=== PATIENT | male | born 1945 | race Caucasian/White ===

== ENCOUNTER 2016-08-01 17:09 | Inpatient (IN) | payer OTHER, SELFPAY ==
--- NOTE | ~2016-08-01 | CN ---
Consultation Report [facility] [address] [place]. [address] NAME: LV VASQUEZ : 47 STATUS : ADM IN [facility]#: [id number] AGE: 71 ADM/REG DATE : 08/01/16 MR#: [id number] REPORT SERV DATE: 08/02/16 DICTATED BY: CLINT PARIS DATE: 08/02/16 REPORT STATUS : Draft TRANSCRIBED BY: MODL DATE: 08/02/16 ELECTROPHYSIOLOGY CONSULTATION DATE OF CONSULTATION: 08/02/2016 REASON FOR CONSULTATION: 2:1 AV block, symptomatic bradycardia. HISTORY OF PRESENT ILLNESS: Mr. Vasquez is a pleasant 71-year-old gentleman, who presented to [facility] Emergency Room and noted to have 2:1 AV block, symptomatic. He was transferred here for further evaluation. He has noted weakness and fatigue. He has no prior history of bradycardia noted. PAST MEDICAL HISTORY: Includes: 1. History of paroxysmal atrial fibrillation. 2. Hypertension. 3. Morbid obesity. 4. Pure hypercholesterolemia. 5. Mild aortic stenosis. 6. Decreased LV systolic function, ejection fraction between 40% and 45% by echocardiogram most recently in 10/2015. 7. Underlying right bundle-branch block. HOME MEDICATIONS: Include losartan and hydrochlorothiazide, vitamin D. FAMILY HISTORY: Negative for premature coronary artery disease or sudden cardiac . SOCIAL HISTORY: Negative tobacco or alcohol. REVIEW OF SYSTEMS: As noted above. All other systems reviewed and negative. PHYSICAL EXAMINATION: VITAL SIGNS: Heart rate is 32 in 2:1 AV block. Most recent blood pressure was 168/70, prior blood pressure 125/56. Respirations 16. GENERAL: Well developed, well nourished. He is in no acute distress. HEENT: No icterus. Good dentition. NECK: Supple. No masses or thyromegaly. LUNGS: Breathing comfortably. No rales or wheezes. COR: A 2/6 systolic ejection murmur best heard at the right upper sternal border. ABD: Soft, nondistended, nontender. No hepatosplenomegaly. EXT: No clubbing, cyanosis, or edema. Peripheral pulses 2+/= bilaterally. SKIN: Warm and dry. No visible lesions. MS: Chest wall without deformity. No obvious clavicular fractures. NEURO/PSYCH: Oriented X3. No anxiety or depression. Consultation Report [facility] [address] [place]. [address] NAME: LV VASQUEZ : 47 STATUS : ADM IN PAT#: [id number] AGE: 71 ADM/REG DATE : 08/01/16 MR#: [id number] REPORT SERV DATE: 08/02/16 DICTATED BY: CLINT PARIS DATE: 08/02/16 REPORT STATUS : Draft TRANSCRIBED BY: MODL DATE: 08/02/16 LABORATORY DATA: EKG demonstrates 2:1 AV block with right bundle-branch block. PVCs noted as well. No evidence for ischemia or infarction. Laboratory values show a creatinine of 1.2. Electrolytes within normal limits. White count 9.4, hematocrit of 35, platelet count of 304. IMPRESSION: 2:1 AV block noted in a patient with underlying right bundle-branch block. He also has a cardiomyopathy with ejection fraction measured between 40% to 45%. I believe he would be a candidate for a dual-chamber biventricular pacing device given the fact that he will have an acquired left bundle-branch block by chronic RV pacing. I have discussed this procedure with the patient and noted how it is performed as well as the inherent risks which include, but are not exclusive to bleeding, infection, pneumothorax, cardiac perforation, and risk of . Also noted approximately 10% chance of LV lead failure due to anatomic considerations, in which case we would plan on simply placing a dual-chamber pacemaker device. The patient is agreeable to undergo the procedure. JA/OMA Clint Paris M.D. / [id number] CC: Amada Connell M.D.
--- NOTE | ~2016-08-01 | HP ---
History And Physical [address] [place]. [address] NAME: LV BONILLA : 47 STATUS : ADM IN [facility]#: [id number] AGE: 71 ADM/REG DATE : 08/01/16 MR#: [id number] REPORT SERV DATE: 08/02/16 DICTATED BY: SOLOMON THURSTON DATE: 08/02/16 REPORT STATUS : Draft TRANSCRIBED BY: MODL DATE: 08/02/16 DATE OF ADMISSION: 08/02/2016 CHIEF COMPLAINT: Weakness and bradycardia. HISTORY OF PRESENT ILLNESS: A 71-year-old man, known to me from prior care, followed by Dr. Calderon, has a history of what has been believed to be chronic atrial fibrillation and has been prescribed Pradaxa (not taking), coronary artery disease, treated dyslipidemia, treated hypertension, minimally impaired LV systolic function. The patient has felt weak and tired for the last 5 days. He denies near danya syncope. He denies chest pain. He presented to Dr. Calderon's office yesterday and was seen by midlevel provider where bradycardia in the 30s was noted. He was referred to [facility] Emergency Room at our request where EKG demonstrated 2:1 AV block. The patient has not been compliant with metoprolol or Pradaxa as an outpatient. PAST MEDICAL HISTORY: 1. Atrial fibrillation - believed chronic and has been on Pradaxa 150 mg b.i.d. (noncompliant). 2. Hypertension. 3. Obesity. 4. Nonischemic cardiomyopathy. 5. Coronary artery disease. HOME MEDICATIONS: Aspirin 81 mg daily, AREDS twice a day, losartan/HCTZ 100/12.5 mg daily. ALLERGIES: NKDA. SOCIAL HISTORY: The patient does not smoke or drink alcohol. FAMILY HISTORY: Noncontributory. REVIEW OF SYSTEMS: Unremarkable except as noted in the HPI. PHYSICAL EXAMINATION: VITAL SIGNS: 167/70, pulse 34, respirations 20, temperature 97.2. GENERAL: Obese. NECK: No JVD, no bruit. LUNGS: Clear. CARDIAC: Bradycardic, I/ systolic murmur. ABDOMEN: Obese. EXTREMITIES: Without edema. LABORATORY DATA: EKG sinus rhythm with 2:1 AV block, ventricular rate 36, right bundle- branch block morphology. History And Physical [address] [place]. [address] NAME: LV BONILLA : 47 STATUS : ADM IN PAT#: [id number] AGE: 71 ADM/REG DATE : 08/01/16 MR#: [id number] REPORT SERV DATE: 08/02/16 DICTATED BY: SOLOMON THURSTON DATE: 08/02/16 REPORT STATUS : Draft TRANSCRIBED BY: MODL DATE: 08/02/16 BUN and creatinine 35 and 1.20 yielding EGFR of 71. Platelet count 304,000, white blood cell count 9.4000, hematocrit 35.2%. ASSESSMENT AND PLAN: 1. Second-degree AV block - off beta ally and persistent 2:1 AV block. Permanent pacemaker indicated. Consult Electrophysiology. 2. Paroxysmal atrial fibrillation - noncompliant, with no echo. Chronic atrial fibrillation was suspected, but in fact now he has sinus rhythm. 3. Coronary artery disease - asymptomatic. We will resume aspirin. 4. Obesity - noted. 5. Hypercholesteremia - not treated. 6. Hypertension - systolic blood pressure is elevated consistent with bradycardia and large stroke volume. /MODL Solomon Thurston M.D. / [id number] CC: Amada Connell M.D.
[2016-08-01 17:36] LABS: BASOPHILS 0.2 %; BASOPHILS ABSOLUTE 0.02 10/3/uL (0.0-0.16); EOSINOPHILS 2.6 %; EOSINOPHILS ABSOLUTE 0.25 10/3/uL (0.0-0.53); ER CBC TAT 0 Hrs 09 Mins; HEMATOCRIT 35.2 % (40.0-51.0); HEMOGLOBIN 11.5 g/dL (13.6-17.8); IMMATURE GRANULOCYTES 0.1 %; IMMATURE GRANULOCYTES ABSOLUTE 0.01 10/3/uL (0.0-0.11); LYMPHOCYTES 33.2 %; LYMPHOCYTES ABSOLUTE 3.13 10/3/uL (0.67-4.30); MANUAL DIFF NO %; MEAN CORPUS HGB CONC 32.7 g/dL (32.0-36.0); MEAN CORPUSCULAR HEMOGLOB 30.5 pg (26.0-34.0); MEAN CORPUSCULAR VOLUME 93.4 fL (80-100); MEAN PLATELET VOLUME 10.3 fL (9.2-13.0); MONOCYTES 7.9 %; MONOCYTES ABSOLUTE 0.75 10/3/uL (0.21-1.20); NEUTROPHILS ABSOLUTE 5.28 10/3/uL (2.02-8.40); PLATELET COUNT 304 10/3/uL (150-400); RBC DISTRIBUTION WIDTH 15.5 % (12.0-16.0); RED CELL COUNT 3.77 10/6/uL (4.7-6.1); WHITE BLOOD CELLS 9.4 10/3/uL (4.5-10.5)
[2016-08-01] MEDS ORDERED: CENTRUM PO (17:36)
[2016-08-01] MEDS ORDERED: HYZAAR1 TAB PO (17:36)
[2016-08-01] MEDS ORDERED: COENZYME Q-10 PO (17:37)
[2016-08-01] MEDS ORDERED: D 5000 PO (17:37)
[2016-08-01] MEDS ORDERED: MAG OXIDE250 MG PO (17:37)
[2016-08-01] MEDS ORDERED: SELENIUM PO (17:38)
[2016-08-01] MEDS ORDERED: FISH OIL1200 MG PO (17:38)
[2016-08-01] MEDS ORDERED: TURMERIC PO (17:39)
[2016-08-01 17:40] LABS: INTERNATIONAL NORMAL RATI 1.2 UNITS (-); PARTIAL THROMBO TIME 32.9 SEC (22.5-37.2); PROTIME (NOT ORD) 15.1 SEC (12.0-14.5)
[2016-08-01 17:51] LABS: BUN (BLOOD UREA NITROGEN) 35 MG/DL (6-23); CALCIUM, SERUM 9.8 MG/DL (8.5-10.4); CHEST PAIN PROFILE TAT 0 Hrs 24 Mins; CHLORIDE, SERUM 107 MMOL/L (96-112); CO2 (CARBON DIOXIDE) 26 MMOL/L (24-34); GFR AFRICAN AMERICAN 71 ML/MIN (>=60); GFR NON AFRICAN AMERICAN 61 ML/MIN (>=60); GLUCOSE, SERUM 100 MG/DL (60-99); POTASSIUM, SERUM 4.6 MMOL/L (3.5-5.3); SODIUM, SERUM 143 MMOL/L (135-148); TROPONIN I <0.02 NG/ML (<0.05)
[2016-08-02 11:31] LABS: BASOPHILS 0.4 %; BASOPHILS ABSOLUTE 0.03 10/3/uL (0.0-0.16); EOSINOPHILS 3.1 %; EOSINOPHILS ABSOLUTE 0.21 10/3/uL (0.0-0.53); HEMATOCRIT 34.8 % (40.0-51.0); IMMATURE GRANULOCYTES 0.1 %; IMMATURE GRANULOCYTES ABSOLUTE 0.01 10/3/uL (0.0-0.11); LYMPHOCYTES 41.8 %; LYMPHOCYTES ABSOLUTE 2.85 10/3/uL (0.67-4.30); MANUAL DIFF NO %; MEAN CORPUS HGB CONC 31.6 g/dL (32.0-36.0); MEAN CORPUSCULAR HEMOGLOB 30.7 pg (26.0-34.0); MEAN CORPUSCULAR VOLUME 97.2 fL (80-100); MEAN PLATELET VOLUME 9.5 fL (9.2-13.0); MONOCYTES 10.3 %; NEUTROPHILS 44.3 %; NEUTROPHILS ABSOLUTE 3.02 10/3/uL (2.02-8.40); PLATELET COUNT 244 10/3/uL (150-400); RBC DISTRIBUTION WIDTH 15.3 % (12.0-16.0); RED CELL COUNT 3.58 10/6/uL (4.7-6.1); WHITE BLOOD CELLS 6.8 10/3/uL (4.5-10.5)
[2016-08-02 11:35] LABS: INTERNATIONAL NORMAL RATI 1.2 UNITS (-); PROTIME (NOT ORD) 15.2 SEC (12.0-14.5)
[2016-08-02 11:37] LABS: BUN (BLOOD UREA NITROGEN) 33 MG/DL (6-23); CALCIUM, SERUM 9.2 MG/DL (8.5-10.4); CHLORIDE, SERUM 108 MMOL/L (96-112); CREATININE 1.16 MG/DL (0.70-1.30); GFR AFRICAN AMERICAN 74 ML/MIN (>=60); GFR NON AFRICAN AMERICAN 63 ML/MIN (>=60); GLUCOSE, SERUM 98 MG/DL (60-99); POTASSIUM, SERUM 4.6 MMOL/L (3.5-5.3); SODIUM, SERUM 139 MMOL/L (135-148)
[2016-08-02 11:38] LABS: CO2 (CARBON DIOXIDE) 21 MMOL/L (24-34)
[2016-08-03] MEDS ORDERED: ULTRAM50 PO (08:59)
[2016-08-03] MEDS ORDERED: ELIQUIS 5 MG TAB5 MG PO (09:00)
[2016-08-03] MEDS ORDERED: XARELTO20 MG PO (11:27)
[2016-09-19] MEDS ORDERED: ELIQUIS 5 MG TAB5 MG PO (10:13)
[2016-09-19] MEDS ORDERED: VITC500 PO (10:14)
[2016-09-19] MEDS ORDERED: COQ-10200 MG PO (10:15)
[2016-09-19] MEDS ORDERED: IMDUR60 PO (10:17)
[2016-09-19] MEDS ORDERED: ASA5GR PO (10:27)
[2016-09-19] MEDS ORDERED: BEN25 PO (10:28)
[2016-09-20] MEDS ORDERED: COREG3 PO (12:30)
== END 2016-08-03 12:55 | disposition home or self-care (01) | DRG 244 ==
LOC: ER 17:09 → 6NO 19:26
PROVIDERS: Emergency Medicine; Internal Medicine Cardiovascular Disease
PROC: 0JH606Z Insertion of Pacemaker, Dual Chamber into Chest Subcutaneous Tissue and Fascia, Open Approach (ICD-10-PCS; principal; 2016-08-02)
PROC: 02HK3JZ Insertion of Pacemaker Lead into Right Ventricle, Percutaneous Approach (ICD-10-PCS; 2016-08-02)
PROC: 02H63JZ Insertion of Pacemaker Lead into Right Atrium, Percutaneous Approach (ICD-10-PCS; 2016-08-02)
DX: I44.1 Atrioventricular block, second degree (principal); I42.9 Cardiomyopathy, unspecified; I35.0 Nonrheumatic aortic (valve) stenosis; I48.0 Paroxysmal atrial fibrillation; I10 Essential (primary) hypertension; E66.01 Morbid (severe) obesity due to excess calories; E78.00 Pure hypercholesterolemia, unspecified; I45.10 Unspecified right bundle-branch block; Z68.38 Body mass index [BMI] 38.0-38.9, adult; I25.10 Atherosclerotic heart disease of native coronary artery without angina pectoris
CPT/HCPCS: 33208; 71010; 80048; 83735; 84484; 85025; 85610; 85730; 93005; 93010; 99285; A9270-GY; C1769; C1785; C1887; C1892; C1898; J0690; Q9967